=== PATIENT | female | born 1950 | race Caucasian/White ===

== ENCOUNTER → 2018-02-02 | Outpatient (CLI) | payer MEDICARE | END | disposition home or self-care (01) | LOC: CFH 14:06 | PROVIDERS: ATTEND Internal Medicine | DX: R79.82 Elevated C-reactive protein (CRP) (principal); E78.5 Hyperlipidemia, unspecified | CPT/HCPCS: 75571 ==

== ENCOUNTER 2021-06-23 08:22 | Outpatient (CLI) | payer MEDICARE | END 2021-06-23 23:59 | disposition home or self-care (01) | LOC: CARD 08:22 | PROVIDERS: ATTEND Internal Medicine | DX: R07.9 Chest pain, unspecified (principal) | CPT/HCPCS: 93017 ==